=== PATIENT | female | born 1950 | race Caucasian/White ===

== ENCOUNTER → 2017-12-02 17:51 | Outpatient (CLI) | payer MEDICARE, OTHER, SELFPAY ==
--- NOTE | 2017-12-02 18:02 | DI.MRI.S_ITS ---
PROCEDURE: MR LUMBAR SPINE WO CON INDICATIONS: LUMBAR DDD TECHNIQUE: Noncontrast sagittal T1 spin echo and T2 fast echo, sagittal STIR, axial T1 and T2 fast spin echo through the lumbar spine. In cases with scoliosis, additional coronal T2 fast spin echo may be performed. COMPARISON: None. FINDINGS: Image quality: Excellent. Alignment and Curvature: There is normal bony alignment. Bone Marrow: Marrow is of normal overall signal. No acute vertebral body compression fractures. Spinal Cord: Conus medullaris terminates at the L1-L2 level. Visualized cord demonstrates normal signal and size. Paraspinous Soft Tissues: No paravertebral masses. L1-L2: Mild loss of disc height. Moderate disc desiccation. There is diffuse posterior disc bulge and disc osteophyte complex. Mild bilateral facet arthropathy. The central canal is patent. Moderate foraminal stenosis. L2-L3: Moderate to severe loss of disc height. Moderate disc desiccation. There is diffuse posterior disc bulge and disc osteophyte complex. Mild bilateral facet arthropathy. The central canal is patent. Moderate to severe right and mild left foraminal stenosis. L3-L4: Severe loss of disc height. Moderate disc desiccation. There is diffuse posterior disc bulge and disc osteophyte complex. Moderate bilateral facet arthropathy. The central canal is patent. Moderate right and mild left foraminal stenosis. L4-L5: Severe loss of disc height. Moderate disc desiccation. There is diffuse posterior disc bulge and disc osteophyte complex. Moderate bilateral facet arthropathy. The central canal is patent. Moderate bilateral foraminal stenosis. L5-S1: Severe loss of disc height. Moderate disc desiccation. There is diffuse posterior disc bulge and disc osteophyte complex. Moderate bilateral facet arthropathy. The central canal is patent. Moderate bilateral foraminal stenosis. IMPRESSION: 1. Multilevel degenerative disc disease and facet arthropathy as described. 2. No significant central canal stenosis. 3. Multilevel foraminal stenosis as described. Dictated by: Vito Benitez M.D. on 12/03/2017 at 8:54 Approved by: Vito Benitez M.D. on 12/03/2017 at 15:13
== END ==
PROVIDERS: Family Provider Internal Medicine; PCP Internal Medicine; Visit Provider Family Medicine Sports Medicine
DX: M51.36 Other intervertebral disc degeneration, lumbar region (principal); M51.37 Other intervertebral disc degeneration, lumbosacral region; M47.816 Spondylosis without myelopathy or radiculopathy, lumbar region; M47.817 Spondylosis without myelopathy or radiculopathy, lumbosacral region; M48.061 Spinal stenosis, lumbar region without neurogenic claudication; M48.07 Spinal stenosis, lumbosacral region
CPT/HCPCS: 72148

== ENCOUNTER → 2018-01-04 12:19 | Outpatient (CLI) | payer MEDICARE, OTHER, SELFPAY ==
--- NOTE | 2018-01-04 | DI.MG.S_ITS ---
BILATERAL DIGITAL SCREENING MAMMOGRAM 3D/2D WITH CAD: 01/04/2018 CLINICAL: Routine screening. Family history of breast cancer. Comparison is made to exams dated: 10/23/2016 mammogram, 10/17/2015 mammogram, and 09/04/2014 mammogram - [facility]. The tissue of both breasts is heterogeneously dense. This may lower the sensitivity of mammography. Current study was also evaluated with a Computer Aided Detection (CAD) system. No significant masses, calcifications, or other findings are seen in either breast. There has been no significant interval change. IMPRESSION: NEGATIVE There is no mammographic evidence of malignancy. A 1 year screening mammogram is recommended. NOTE: For mammograms, a report in lay terms will be sent to the patient. Approximately 15% of breast malignancies will not be visualized mammographically. In the management of a palpable breast mass, a negative mammogram must not discourage biopsy of a clinically suspicious lesion. Electronically Signed By: Niecy whiteside/jarad:01/05/2018 14:13:21 copy to: Priscilla Quinonez copy to: Ian Leo letter sent: Normal Exam ACR BI-RADS Category 1: Negative 3341F
== END ==
PROVIDERS: Family Provider Obstetrics & Gynecology; Visit Provider Family Medicine Sports Medicine
DX: Z12.31 Encounter for screening mammogram for malignant neoplasm of breast (principal); Z80.3 Family history of malignant neoplasm of breast; M85.852 Other specified disorders of bone density and structure, left thigh; Z78.0 Asymptomatic menopausal state; Z82.62 Family history of osteoporosis
CPT/HCPCS: 77063; 77067; 77080

== ENCOUNTER → 2019-02-17 13:55 | Outpatient (CLI) | payer MEDICARE, OTHER, SELFPAY ==
--- NOTE | 2019-02-17 | DI.MG.S_ITS ---
BILATERAL DIGITAL SCREENING MAMMOGRAM 3D/2D WITH CAD: 02/17/2019 CLINICAL: Routine screening. Family history of breast cancer. Comparison is made to exams dated: 01/04/2018 mammogram, 10/23/2016 mammogram, 10/17/2015 mammogram, 05/10/2012 mammogram, 07/27/2013 mammogram, and 09/04/2014 mammogram - [facility]. The tissue of both breasts is heterogeneously dense. This may lower the sensitivity of mammography. Current study was also evaluated with a Computer Aided Detection (CAD) system. No significant masses, calcifications, or other findings are seen in either breast. There has been no significant interval change. IMPRESSION: NEGATIVE There is no mammographic evidence of malignancy. A 1 year screening mammogram is recommended. This exam was interpreted at Station ID: [id number]. NOTE: For mammograms, a report in lay terms will be sent to the patient. Approximately 15% of breast malignancies will not be visualized mammographically. In the management of a palpable breast mass, a negative mammogram must not discourage biopsy of a clinically suspicious lesion. Electronically Signed By: Tray klein/jarad:02/17/2019 19:07:01 copy to: Prince Mckeon letter sent: Normal Exam ACR BI-RADS Category 1: Negative 3341F
== END ==
PROVIDERS: Family Provider Obstetrics & Gynecology; PCP Internal Medicine; Visit Provider Obstetrics & Gynecology
DX: Z12.31 Encounter for screening mammogram for malignant neoplasm of breast (principal); Z80.3 Family history of malignant neoplasm of breast
CPT/HCPCS: 77063; 77067

== ENCOUNTER → 2019-05-12 14:48 | Outpatient (CLI) | payer MEDICARE, OTHER, SELFPAY | PROVIDERS: Family Provider Obstetrics & Gynecology; PCP Internal Medicine; Referring Provider Internal Medicine; Visit Provider Internal Medicine | DX: M85.851 Other specified disorders of bone density and structure, right thigh (principal); Z78.0 Asymptomatic menopausal state; Z82.62 Family history of osteoporosis | CPT/HCPCS: 77080 ==

== ENCOUNTER → 2020-02-19 11:18 | Outpatient (CLI) | payer MEDICARE, OTHER, SELFPAY ==
--- NOTE | 2020-02-19 | DI.MG.S_ITS ---
BILATERAL DIGITAL SCREENING MAMMOGRAM 3D/2D WITH CAD: 02/19/2020 CLINICAL: Routine screening. Family history of breast cancer. Comparison is made to exams dated: 02/17/2019 mammogram, 01/04/2018 mammogram, and 10/23/2016 mammogram - [facility]. The tissue of both breasts is heterogeneously dense. This may lower the sensitivity of mammography. Current study was also evaluated with a Computer Aided Detection (CAD) system. No significant masses, calcifications, or other findings are seen in either breast. There has been no significant interval change. IMPRESSION: NEGATIVE There is no mammographic evidence of malignancy. A 1 year screening mammogram is recommended. This exam was interpreted at Station ID: [id number]. NOTE: For mammograms, a report in lay terms will be sent to the patient. Approximately 15% of breast malignancies will not be visualized mammographically. In the management of a palpable breast mass, a negative mammogram must not discourage biopsy of a clinically suspicious lesion. Electronically Signed By: Shukri Almodovar acr/penrad:02/19/2020 14:20:49 copy to: Prince Mckeon letter sent: Normal Exam ACR BI-RADS Category 1: Negative 3341F
== END ==
PROVIDERS: Family Provider Obstetrics & Gynecology; PCP Internal Medicine; Referring Provider Obstetrics & Gynecology; Visit Provider Obstetrics & Gynecology
DX: Z12.31 Encounter for screening mammogram for malignant neoplasm of breast (principal); Z80.3 Family history of malignant neoplasm of breast
CPT/HCPCS: 77063; 77067

== ENCOUNTER → 2020-05-02 14:40 | Outpatient (ROUT) | payer MEDICARE, OTHER, SELFPAY ==
[2020-05-02 15:18] LABS: Cholesterol 155 mg/dL (140-199); Glucose 95 mg/dL (80-110); HDL Cholesterol 85 mg/dL (40-60); LDL Cholesterol Calculated 58 mg/dL (<100); Triglycerides 58 mg/dL (35-150)
[2020-05-02 15:22] LABS: Hemoglobin A1C% w Est Avg Glu 4.7 % (4.0-6.0)
== END ==
PROVIDERS: Family Provider Obstetrics & Gynecology; PCP Internal Medicine; Visit Provider Internal Medicine
DX: E78.2 Mixed hyperlipidemia (principal); R73.01 Impaired fasting glucose
CPT/HCPCS: 80061; 82947; 83036

== ENCOUNTER → 2020-06-26 13:42 | Outpatient (CLI) | payer MEDICARE, SELFPAY ==
--- NOTE | 2020-06-26 | DI.RAD.S_ITS ---
PROCEDURE: XR DEXA AXIAL SKELETON INDICATIONS: Asymptomatic menopausal state COMPARISON: [facility], CR, XR DEXA AXIAL SKELETON, 05/12/2019, 15:05. FINDINGS: This blank DEXA report has been sent in error by the PACS system. The correct and complete report will be forthcoming in 1-2 days. Thank you for your patience and understanding. Dictated by: Meche Siddiqi MD, PhD on 06/26/2020 at 17:18 Approved by: Meche Siddiqi MD, PhD on 06/26/2020 at 17:18
== END ==
PROVIDERS: Family Provider Obstetrics & Gynecology; PCP Internal Medicine; Referring Provider Internal Medicine; Visit Provider Internal Medicine
DX: Z78.0 Asymptomatic menopausal state (principal); M85.852 Other specified disorders of bone density and structure, left thigh; Z82.62 Family history of osteoporosis
CPT/HCPCS: 77080

== ENCOUNTER → 2020-07-18 18:36 | Outpatient (ROUT) | payer MEDICARE, OTHER, SELFPAY ==
[2020-07-18 18:53] LABS: BUN Creatinine Ratio 34.4 (6-22); Blood Urea Nitrogen 22 mg/dL (7-17); Calcium 8.9 mg/dL (8.4-10.2); Carbon Dioxide 27 mmol/L (22-32); Chloride 102 mmol/L (98-107); Estimated Glomerular Filt Rate > 60.0 mL/min (>60); Glucose 106 mg/dL (80-110); HEMOLYSIS < 15 (0-50); Potassium 4.2 mmol/L (3.4-5.1); Sodium 135 mmol/L (137-145)
[2020-07-30 08:19] LABS: 1,25-Dihydroxy, Vitamin D-2 <10 pg/mL (.)
== END ==
PROVIDERS: Family Provider Obstetrics & Gynecology; PCP Internal Medicine; Visit Provider Internal Medicine
DX: M85.80 Other specified disorders of bone density and structure, unspecified site (principal); E55.9 Vitamin D deficiency, unspecified
CPT/HCPCS: 80048; 82652

== ENCOUNTER → 2021-04-18 15:29 | Outpatient (CLI) | payer MEDICARE, OTHER, SELFPAY ==
--- NOTE | 2021-04-18 | DI.MG.S_ITS ---
BILATERAL DIGITAL SCREENING MAMMOGRAM 3D/2D WITH CAD: 04/18/2021 CLINICAL: Routine screening. Family history of breast cancer. Comparison is made to exams dated: 02/19/2020 mammogram, 02/17/2019 mammogram, and 01/04/2018 mammogram - [facility]. The tissue of both breasts is heterogeneously dense. This may lower the sensitivity of mammography. Current study was also evaluated with a Computer Aided Detection (CAD) system. No significant masses, calcifications, or other findings are seen in either breast. There has been no significant interval change. IMPRESSION: NEGATIVE There is no mammographic evidence of malignancy. A 1 year screening mammogram is recommended. This exam was interpreted at Station ID: [id number]. NOTE: For mammograms, a report in lay terms will be sent to the patient. Approximately 15% of breast malignancies will not be visualized mammographically. In the management of a palpable breast mass, a negative mammogram must not discourage biopsy of a clinically suspicious lesion. Electronically Signed By: Jesse Oswald M.D., jr/jarad:04/18/2021 15:50:29 copy to: Prince Mckeon letter sent: Normal Exam ACR BI-RADS Category 1: Negative 3341F
--- NOTE | 2021-04-18 | DI.US.S_ITS ---
PROCEDURE: US PELVIC COMPLETE INDICATIONS: PELVIC PAIN TECHNIQUE: Real-time scanning was performed of the pelvic organs, with image documentation. Additional endovaginal scanning was necessary due to incomplete visualization of the adnexal and endometrial structures by transabdominal scanning. COMPARISON: None. FINDINGS: Uterus: Uterus is retroverted and normal in size at 6.3 x 4.4 x 2.8 cm. The myometrium is heterogeneous. The endometrium measures 4.5 mm combined thickness. Microcystic changes of the endometrial complex. There are multiple fibroids, largest measuring 2.3 x 2.8 x 1.9 cm which is intramural. Ovaries: Ovaries are not identified. Other: No pathologic free abdominal or pelvic fluid. IMPRESSION: 1. Normal thickness of the endometrial complex which has a multi cystic appearance. Recommend short-term follow-up pelvic ultrasound in 6 weeks to assess for interval change. 2. Multiple small uterine fibroids, largest measuring 2.8 cm. 3. Ovaries not identified. We strive to produce accurate, complete, and clear reports of imaging services. To assist us in improving patient care, this report was composed using standard report templates and voice recognition software. Therefore, it may contain abnormal punctuation, insertions and/or omissions. Occasional wrong-word or sound-alike substitutions may occur. Though we review the report and make efforts to correct it, we do recommend that the report be read carefully in proper context to recognize any text inaccuracies. Dictated by: Rashad WALKER Interpreted: Jaspal Marcum MD on 04/18/2021 at 16:43 Transcribed by: DONNA on 04/18/2021 at 16:45 Approved by: Jaspal Marcum M.D. on 04/18/2021 at 18:03
== END ==
PROVIDERS: Family Provider Obstetrics & Gynecology; PCP Family Medicine; Referring Provider Family Medicine; Visit Provider Internal Medicine
DX: Z12.31 Encounter for screening mammogram for malignant neoplasm of breast (principal); D25.9 Leiomyoma of uterus, unspecified; Z80.3 Family history of malignant neoplasm of breast; R10.2 Pelvic and perineal pain; Z80.41 Family history of malignant neoplasm of ovary
CPT/HCPCS: 76830; 76856; 77063; 77067

== ENCOUNTER → 2021-05-12 17:25 | Outpatient (CLI) | payer MEDICARE, SELFPAY ==
[2021-05-12 19:00] LABS: Cancer Antigen 125 < 5.5 U/mL (0-35)
== END ==
PROVIDERS: Family Provider Obstetrics & Gynecology; PCP Family Medicine; Referring Provider Obstetrics & Gynecology; Visit Provider Obstetrics & Gynecology
DX: R14.0 Abdominal distension (gaseous) (principal); R10.2 Pelvic and perineal pain
CPT/HCPCS: 36415; 86304

== ENCOUNTER 2021-10-17 23:00 | Emergency (ER) | payer MEDICARE, OTHER, SELFPAY ==
[2021-10-17 23:03] VITALS: BP 178/83; PULSE 92; RESP 19; TEMP 36.6; O2SAT 99; BMI 19.1
--- NOTE | 2021-10-17 23:08 | DI.RAD.S_ITS ---
PROCEDURE: XR WRIST RT MIN 3V INDICATIONS: right wrist injury TECHNIQUE: 30 views of the wrist were acquired. COMPARISON: None. FINDINGS: Bones: There is a mildly impacted fracture of the distal radius. Fracture lines extend to the radiocarpal and distal radioulnar joints. No dislocation. No displaced ulnar fractures. Soft tissues: No suspicious soft tissue calcifications. IMPRESSION: 1. Mildly impacted fracture of the distal radius with articular extension as described. Dictated by: Arie Hathaway M.D. on 10/17/2021 at 23:42 Approved by: Arie Hathaway M.D. on 10/17/2021 at 23:45
--- NOTE | 2021-10-18 05:15 | ED_ITS ---
HPI - Extremity Injury (Upper) General Chief Complaint: Extremity Injury, Upper Stated Complaint: Rt. wrist paindue to fall Time Seen by Provider: 10/17/21 23:21 Source: patient Mode of arrival: Ambulatory History of Present Illness HPI narrative: 71-year-old female nonsmoker with noncontributory medical history presents with a chief complaint of pain in her right wrist after a ground level fall. She was in her normal state of health and denies any prodromal symptoms such as dizziness, weakness or lightheadedness. She was out walking her dog in the dark when she lost her balance and fell on an outstretched right wrist. She has si gnificant pain with palpation or range of motion. She denies any numbness, tingling or weakness. She denies any elbow or shoulder pain. She did not strike her head and has no neck or back pain. Related Data Home Medications Medication Instructions Recorded Confirmed CA PANTOTHENATE/FOLIC ACID/VIT 1 tab PO QDAY ##0 03/03/11 05/12/21 (MULTIVITAMIN) CALCIUM CARBONATE (Calcium 1,500 mg PO QDAY ##0 03/03/11 05/12/21 Carbonate) ASCORBIC ACID (VITAMIN C) 500 mg PO Q DAY ##0 02/18/12 05/12/21 Fish Oil (#EPA/GLA) 1 sgl PO Q DAY ##0 02/18/12 05/12/21 zolpidem 5 mg tablet 5 - 10 mg PO HS PRN Sleep 07/13/17 05/12/21 cholecalciferol (vitamin D3) 25 2,000 unit PO DAILY 08/15/18 05/12/21 mcg (1,000 unit) capsule cyanocobalamin (vitamin B-12) 500 500 mcg PO DAILY 08/15/18 05/12/21 mcg tablet Previous Rx's Medication Instructions Recorded conj estrogen-medroxyprogesterone 1 tab PO DAILY #45 tabs 11/11/20 0.3 mg-1.5 mg tablet (Prempro) Allergies Allergy/AdvReac Type Severity Reaction Status Date / Time No Known Allergies Allergy Uncoded 10/17/21 23:08 Review of Systems Review of Systems Narrative: GENERAL: Denies chills, fatigue, malaise, fever, sweats. HEENT: Denies sinus pain, ear pain, sore throat, difficulty swallowing, dizziness. RESPIRATORY: Denies dyspnea, cough, wheezing, hemoptysis, sputum. CARDIOVASCULAR: Denies chest pain, palpitations, orthopnea, edema, GASTROINTESTINAL: Denies nausea, vomiting, abdominal pain, diarrhea, constipation, melena. : Denies dysuria, frequency, incontinence, hematuria, urinary retention. MUSCULOSKELETAL: See HPI SKIN: Denies rash, skin lesions, or other NEUROLOGIC: Denies weakness, headache, numbness, change in speech, confusion, seizures, incoordination. PSYCHIATRIC: No concerning psychosocial issues. 12 point review of systems is negative except for those stated above Patient History Surgical History History of third molar tooth extraction Status post laminectomy Status post myomectomy Status post tonsillectomy and adenoidectomy Family History Brother Diabetes mellitus Brother Age: 74 Hypertension Mother Hypertension CAD (coronary artery disease) Peripheral arterial disease Sister Age: 62 Thyroid cancer Sister Age: 73 History of breast cancer History of ovarian cancer Hypertension Celiac disease Social History household members: spouse Smoking Status: Never smoker Smoking Status: Never smoker alcohol intake frequency: 0-2 drinks per day Alcohol type: wine Substance Use Type: does not use Exam Narrative Exam Narrative: GEN: AOx3 and in mild distress EYES: Pupils are equal, round, and reactive to light and accommodation. Extraoccular muscles are intact bilaterally. There is no subconjunctival hemorrhage or exudate. CHEST: Lungs are clear to auscultation bilaterally and free of wheezes, rales, or rhonchi. Heart rate is regular rhythm, there are no murmurs, clicks, rubs, or gallops. There is no chest wall tenderness. ABD: Abdomen is soft and nontender. There is no guarding or rebound. Bowel sounds are normal in all 4 quadrants. There is no mass or organomegaly. EXT: Decreased range of motion at right wrist due to pain. There is swelling and obvious deformity. This is isolated, closed and neurovascularly intact. No elbow or shoulder pain SKIN: Warm, pink, and dry. No erythema or rash Initial Vital Signs Initial Vital Signs: Vital Signs Temperature 98 F 10/17/21 23:03 Pulse Rate 92 H 10/17/21 23:03 Respiratory Rate 19 10/17/21 23:03 Blood Pressure 178/83 H 10/17/21 23:03 Pulse Oximetry 99 10/17/21 23:03 Oxygen Delivery Method 10/17/21 23:03 Procedures Orthopedic Splinting/Casting Injury #1: Side: right Upper Extremity Injury Location: wrist Upper Extremity Immobilizer: sling/shoulder immobilizer and sugar tong splint Post splinting neuro exam: intact Post splinting vascular exam: intact Placed by: Nursing Course Orders Ordered: ED Orders 10/17/21 23:08 XR wrist RT min 3V Stat Discontinued Medications Hydrocodone Bitart/Acetaminophen (Hydrocodone/Acet 5/325 Prepack) 1 bottle MISC SEEINSTR ONE Stop: 10/17/21 23:22 Last Admin: 10/18/21 00:26 Dose: Not Given Documented By: ISMA Ondansetron HCl (Ondansetron 4 Mg/2 Ml Inj) 4 mg IV NOW ONE Stop: 10/17/21 23:22 Last Admin: 10/17/21 23:57 Dose: Not Given Documented By: ISMA Ondansetron HCl (Ondansetron 4 Mg Odt Prepack) 1 bottle MISC SEEINSTR ONE Stop: 10/17/21 23:22 Last Admin: 10/18/21 00:26 Dose: Not Given Documented By: ISMA Propofol (Propofol 200 Mg/20 Ml Vial) 110 mg 2 mg/kg (110 mg) IV NOW ONE Stop: 10/17/21 23:22 Last Admin: 10/17/21 23:58 Dose: Not Given Documented By: ISMA Consultations Consultation #1: Discussed with on-call orthopedist, we sure the opinion that attempt at reduction in the emergency department is unlikely to result in any significant improvement. She request patient be placed in splint, given appropriate pain control and encouraged to follow-up with her office Vital Signs Vital signs: Vital Signs - 8 hr 10/17/21 23:03 Temperature 98 F Pulse Rate 92 H Respiratory Rate 19 Blood Pressure 178/83 H Pulse Oximetry 99 Oxygen Delivery Method Room Air MDM - Extremity Injury (Upper) Imaging Data Extremity x-ray #1: Radiologist's Impression: Close Wrist X-Ray (Signed) Arie Hathaway - 10/17/21 Pelvis Ultrasound (Signed) Jaspal Marcum - 04/18/21 Mammogram Screening (Signed) Jesse Oswald - 04/18/21 Bone Densitometry (Signed) NeeruMeche pritchett - 06/26/20 Mammogram Screening (Signed) NishiShukri - 02/19/20 Bone Densitometry 05/12/19 Mammogram Screening (Signed) Tray Lopez - 02/17/19 Mammogram Screening (Signed) Niecy Slade - 01/04/18 Lumbar Spine MRI (Signed) EliJosephine - 12/02/17 Telemetry Strips 07/13/17 Launch?[address] [address] XRay Report Signed Patient: Celina Stein MR#: [id number] : 1950 Acct:[id number] Age/Sex: 71 / F Date of Service: 10/17/21 Loc: Accession Number: [id number] ?? Procedure: XR wrist RT min 3V Ordering Provider: Jesús De La Cruz D.O. PROCEDURE:? XR WRIST RT MIN 3V ? INDICATIONS: right wrist injury ? TECHNIQUE:? 30 views of the wrist were acquired.? ? COMPARISON:? None. ? FINDINGS:? ? Bones:? There is a mildly impacted fracture of the distal radius.? Fracture lines extend to the radiocarpal and distal radioulnar joints.? No dislocation.? No displaced ulnar fractures. ? Soft tissues:? No suspicious soft tissue calcifications.? ? IMPRESSION:? ? 1. Mildly impacted fracture of the distal radius with articular extension as described. ? ? Dictated by: Arie Hathaway M.D. on 10/17/2021 at 23:42 ? ? Approved by: Arie Hathaway M.D. on 10/17/2021 at 23:45 ? Discharge Plan Departure Patient Disposition: Home Clinical Impression: Distal radius fracture, right Instructions: DI for Distal Radius Fracture Activity Restrictions/Additional Instructions: *You have been diagnosed with [right distal radius fracture] *What to do: *Please continue to take your regular medications as directed. [ ] New medication prescriptions sent to your pharmacy: [ ] [ ] New medication written as a paper prescription [x] Tylenol and occasional Motrin for pain *Please follow up with Dr. Goff ] of [facility] in 2-3 days, call for an appointment. Let them know you were seen in the Emergency Department and that we ask that you be seen in follow up. We will electronically transmit a record of today's note if your PCP is in our system *Return to Emergency Department if you should have any new, worsening or concerning symptoms, such as [worsening pain, significant swelling, cold extremities, numbness, tingling, weakness or other bothersome symptoms Splint Care: Keep splint clean and dry. Elevated affected body part to decrease swelling. OK to use ice pack on the affected body part. Use for 15-20 minutes each time, for 5-6x per day. If you develop worsening pain, numbness, tingling, discoloration of the affected body part, loosen the splint by loosening the SHELBY wrap, and either see your doctor for an urgent re-assessment, or return to the Emergency Department. Return to the Emergency Department for any new or worsening symptoms. Prescriptions: No Action CA PANTOTHENATE/FOLIC ACID/VIT (MULTIVITAMIN) 1 tab PO QDAY Qty: 0 CALCIUM CARBONATE (Calcium Carbonate) 1,500 mg PO QDAY Qty: 0 Fish Oil (#EPA/GLA) 1 sgl PO Q DAY Qty: 0 ASCORBIC ACID (VITAMIN C) 500 mg PO Q DAY Qty: 0 Prempro 0.3-1.5 mg tablet 1 tab PO DAILY Qty: 45 3RF cyanocobalamin (vitamin B-12) 500 mcg tablet 500 mcg PO DAILY cholecalciferol (vitamin D3) 1,000 unit capsule 2,000 unit PO DAILY zolpidem 5 MG tablet 5 - 10 mg PO HS PRN (Reason: Sleep) Referrals: Haile Mccann MD [Primary Care Provider] - Jyoti Bobo MD [Physician] - Visit Report Forms: Patient Portal/API
== END 2021-10-18 00:28 | disposition home or self-care (01) ==
PROVIDERS: Emergency Provider Emergency Medicine; Family Provider Obstetrics & Gynecology; PCP Family Medicine
DX: S52.501A Unspecified fracture of the lower end of right radius, initial encounter for closed fracture (principal); W18.30XA Fall on same level, unspecified, initial encounter
CPT/HCPCS: 29125; 73110; 99283

== ENCOUNTER → 2022-02-09 12:51 | Outpatient (CLI) | payer MEDICARE, OTHER, SELFPAY ==
--- NOTE | 2022-02-09 | DI.CT.S_ITS ---
PROCEDURE: CT ABDOMEN PELVIS W CON INDICATIONS: Lower abdominal pain, unspecified TECHNIQUE: After the administration of oral and IV contrast, axial sections were acquired from the lung bases to the pubic symphysis. Coronal and sagittal reformats were performed. For radiation dose reduction, the following was used: automated exposure control, adjustment of mA and/or kV according to patient size. COMPARISON: None. FINDINGS: Image quality: Excellent. Lung bases: Clear lung bases. No pleural effusion or hiatal hernia. Heart: No significant findings. ABDOMEN: Liver: Two small hepatic cysts, hemangiomas, or biliary hamartomas. Gallbladder: Partially decompressed. No calcifications visible. Biliary ducts: Nondilated. Pancreas: Minimally prominent pancreatic duct. Normal glandular contour and attenuation. Spleen: Normal size. Adrenal Glands: No masses. Kidneys and Ureters: Symmetric enhancement. No nephrolithiasis or hydronephrosis. No hydroureter. 1.3 cm corticomedullary left lower pole cyst. Stomach and Bowel: The stomach is partially decompressed. Several loops of bowel demonstrate air-fluid levels. No suspicious wall thickening. Slightly increased quantity of solid stool present in the colon and rectum. Peritoneum: No abnormal intraperitoneal fluid. No free air. Ventral Wall: No hernia. Abdominal Nodes: No retroperitoneal or mesenteric adenopathy by size criteria. Vessels: Aorta and inferior vena cava are normal in size. PELVIS: Pelvic Organs: The uterus is retroverted and demonstrates a lobulated contour secondary to several fibroids. Ovarian tissue is not identified. Bladder: Urinary bladder wall is mildly, diffusely in uniformly thickened. No significant perivesicular inflammation. Pelvic Nodes: No enlarged lymph nodes. Miscellaneous: No inguinal hernias are seen. Bones: No suspicious bone lesions or compression fractures. Multilevel degenerative disc height loss. IMPRESSION: 1. Retroverted and lobulated fibroid uterus may exert mass effect on the rectum. 2. Mild urinary bladder wall thickening may indicate cystitis, infectious or inflammatory. 3. No other suspicious findings. Dictated by: Melina Panda M.D. on 02/09/2022 at 17:45 Approved by: Melina Panda M.D. on 02/09/2022 at 17:53
== END ==
PROVIDERS: Family Provider Obstetrics & Gynecology; PCP Family Medicine; Referring Provider Family Medicine; Visit Provider Family Medicine
DX: N85.4 Malposition of uterus (principal); R10.30 Lower abdominal pain, unspecified
CPT/HCPCS: 74177; Q9967

== ENCOUNTER → 2022-04-29 13:54 | Outpatient (CLI) | payer MEDICARE, OTHER, SELFPAY ==
--- NOTE | 2022-04-29 13:56 | DI.MG.S_ITS ---
BILATERAL DIGITAL SCREENING MAMMOGRAM 3D/2D WITH CAD: 04/29/2022 CLINICAL: Routine screening. Family history of breast cancer. Comparison is made to exams dated: 04/18/2021 mammogram, 02/19/2020 mammogram, and 02/17/2019 mammogram - [facility]. Both breasts are heterogeneously dense, which may obscure small masses (category c / 51-75% glandular tissue). Current study was also evaluated with a Computer Aided Detection (CAD) system. There is a possible asymmetry in the left breast posterior depth central to the nipple seen on the mediolateral oblique view only. There is architectural distortion associated with the asymmetry. No other significant masses, calcifications, or other findings are seen in either breast. IMPRESSION: INCOMPLETE: NEEDS ADDITIONAL IMAGING EVALUATION The possible asymmetry in the left breast is indeterminate. Additional views with possible ultrasound are recommended. This exam was interpreted at Station ID: [id number]. NOTE: For mammograms, a report in lay terms will be sent to the patient. Approximately 15% of breast malignancies will not be visualized mammographically. In the management of a palpable breast mass, a negative mammogram must not discourage biopsy of a clinically suspicious lesion. Electronically Signed By: Niecy whiteside/jarad:04/29/2022 14:48:47 copy to: Prince Mckeon letter sent: Additional Imaging Needed ACR BI-RADS Category 0: Incomplete 3340F
== END ==
PROVIDERS: Family Provider Obstetrics & Gynecology; PCP Family Medicine; Referring Provider Family Medicine; Visit Provider Family Medicine
DX: Z12.31 Encounter for screening mammogram for malignant neoplasm of breast (principal); Z80.3 Family history of malignant neoplasm of breast
CPT/HCPCS: 77063; 77067

== ENCOUNTER → 2022-05-27 13:40 | Outpatient (CLI) | payer MEDICARE, OTHER, SELFPAY ==
--- NOTE | 2022-05-27 | DI.MG.S_ITS ---
UNILATERAL LEFT DIGITAL DIAGNOSTIC MAMMOGRAM 3D/2D WITH ADDITIONAL VIEWS: 05/27/2022 CLINICAL: Additional evaluation requested from prior study. Comparison is made to exams dated: 04/29/2022 mammogram, 04/18/2021 mammogram, and 02/19/2020 mammogram - [facility]. The left breast is heterogeneously dense, which may obscure small masses (category c / 51-75% glandular tissue). There is a possible benign asymmetry in the left breast posterior depth central to the nipple seen on the mediolateral oblique view only. This is not seen in additional views. There is architectural distortion associated with the asymmetry. No other significant masses or calcifications are seen in the breast. IMPRESSION: BENIGN There is no mammographic evidence of malignancy. A 1 year screening mammogram is recommended. Based on the Tyrer Cuzick model (a risk assessment model) the patient's lifetime risk is 16.4% and her 10 year risk is 11.5%. According to the ACR, ACS, and NCCN guidelines, an annual breast MRI exam along with mammogram is recommended if the patient's lifetime risk is 20% or greater. This exam was interpreted at Station ID: [id number]. NOTE: For mammograms, a report in lay terms will be sent to the patient. Approximately 15% of breast malignancies will not be visualized mammographically. In the management of a palpable breast mass, a negative mammogram must not discourage biopsy of a clinically suspicious lesion. Electronically Signed By: Shukri shelton/jarad:05/27/2022 14:13:38 copy to: Prince Mckeon ACR BI-RADS Category 2: Benign Finding(s) 3342F
== END ==
PROVIDERS: Family Provider Obstetrics & Gynecology; PCP Family Medicine; Referring Provider Family Medicine; Visit Provider Family Medicine
DX: N64.89 Other specified disorders of breast (principal); R92.8 Other abnormal and inconclusive findings on diagnostic imaging of breast
CPT/HCPCS: 77065; G0279

== ENCOUNTER → 2022-06-02 14:50 | Outpatient (CLI) | payer MEDICARE, OTHER, SELFPAY ==
[2022-06-02 16:24] LABS: Cancer Antigen 125 < 5.5 U/mL (0-35)
== END ==
PROVIDERS: Family Provider Obstetrics & Gynecology; PCP Family Medicine; Referring Provider Obstetrics & Gynecology; Visit Provider Obstetrics & Gynecology
DX: R14.0 Abdominal distension (gaseous) (principal); R10.2 Pelvic and perineal pain; Z80.41 Family history of malignant neoplasm of ovary
CPT/HCPCS: 36415; 86304

== ENCOUNTER → 2023-05-05 15:59 | Outpatient (CLI) | payer MEDICARE, SELFPAY ==
--- NOTE | 2023-05-05 16:00 | DI.MG.S_ITS ---
BILATERAL DIGITAL SCREENING MAMMOGRAM 3D/2D WITH CAD: 05/05/2023 CLINICAL: Routine screening. Family history of breast cancer. Comparison is made to exams dated: 04/29/2022 mammogram, 04/18/2021 mammogram, and 02/19/2020 mammogram - [facility]. Both breasts are heterogeneously dense, which may obscure small masses (category c / 51-75% glandular tissue). Current study was also evaluated with a Computer Aided Detection (CAD) system. No significant masses, calcifications, or other findings are seen in either breast. There has been no significant interval change. IMPRESSION: NEGATIVE There is no mammographic evidence of malignancy. A 1 year screening mammogram is recommended. Based on the Tyrer Cuzick model (a risk assessment model) the patient's lifetime risk is 15.6% and her 10 year risk is 11.8%. According to the ACR, ACS, and NCCN guidelines, an annual breast MRI exam along with mammogram is recommended if the patient's lifetime risk is 20% or greater. This exam was interpreted at Station ID: [id number]. NOTE: For mammograms, a report in lay terms will be sent to the patient. Approximately 15% of breast malignancies will not be visualized mammographically. In the management of a palpable breast mass, a negative mammogram must not discourage biopsy of a clinically suspicious lesion. Electronically Signed By: Jayden rocha/jarad:05/06/2023 09:01:03 copy to: Prince Mckeon letter sent: Normal Exam ACR BI-RADS Category 1: Negative [id number]
== END ==
PROVIDERS: Family Provider Obstetrics & Gynecology; PCP Family Medicine; Referring Provider Family Medicine; Visit Provider Family Medicine
DX: Z12.31 Encounter for screening mammogram for malignant neoplasm of breast (principal); Z80.3 Family history of malignant neoplasm of breast; R92.333 Mammographic heterogeneous density, bilateral breasts
CPT/HCPCS: 77063; 77067

== ENCOUNTER → 2023-06-30 12:24 | Outpatient (CLI) | payer MEDICARE, SELFPAY ==
--- NOTE | 2023-06-30 12:25 | DI.RAD.S_ITS ---
PROCEDURE: XR DEXA AXIAL SKELETON INDICATIONS: Asymptomatic menopausal state COMPARISON: [facility], CR, XR DEXA AXIAL SKELETON, 06/26/2020, 14:12. FINDINGS: Lumbar Spine: Bone mineral density 0.947 g/cm2, T score -0.9. Left Hip: Bone mineral density 0.762 g/cm2, T score -1.5. Left Femoral Neck: Bone mineral density 0.695 g/cm2, T score -1.4. Right Hip: Bone mineral density 0.789 g/cm2, T score -1.3. Right Femoral Neck: Bone mineral density 0.733 g/cm2, T score -1.0. Fracture Risk Calculation (when applicable): 10-year fracture risk of a major osteoporotic fracture 8.6% and of a hip fracture 1.6%. (T score greater or equal to -1.0 to: NORMAL) (T score from -1.1 to -2.4: OSTEOPENIA) (T score less than or equal to -2.5: OSTEOPOROSIS) IMPRESSION: Osteopenia. Dictated by: Jaspal Marcum M.D. on 07/01/2023 at 11:26 Approved by: Jaspal Marcum M.D. on 07/01/2023 at 11:29
== END ==
LOC: RAD 12:25
PROVIDERS: Family Provider Obstetrics & Gynecology; PCP Family Medicine; Referring Provider Family Medicine; Visit Provider Family Medicine
DX: Z78.0 Asymptomatic menopausal state (principal); Z13.820 Encounter for screening for osteoporosis; M85.89 Other specified disorders of bone density and structure, multiple sites
CPT/HCPCS: 77080

== ENCOUNTER → 2024-06-12 16:23 | Outpatient (CLI) | payer MEDICARE, OTHER, SELFPAY ==
--- NOTE | 2024-06-12 16:25 | DI.MG.S_ITS ---
MM screening mammo BI: 06/12/2024. BI-RADS: 0 CLINICAL: 74-year old female for bilateral screening mammogram. Tyrer-Cuzick lifetime risk of 9.5%. Current reported family history of breast cancer: paternal grandmother and sister. History of ovarian cancer in one first-degree relative. PRIOR EXAMS 05/05/2023, 05/27/2022, 04/29/2022, 04/18/2021, 02/19/2020, 02/17/2019, 01/04/2018, 10/23/2016, 10/17/2015, 09/04/2014. MAMMOGRAPHY TECHNIQUE: 2D and 3D (tomosynthesis) digital mammographic views obtained, with additional images as needed for full coverage. Current study was also evaluated with a Computer Aided Detection (CAD) system. DENSITY C. The breasts are heterogeneously dense, which may obscure small masses. MAMMOGRAPHY FINDINGS Right: No suspicious mass, asymmetry, microcalcification, or other abnormality seen. Left: Upper Inner Quadrant, Middle depth: Mass needing additional imaging evaluation. IMPRESSION: Right * No evidence of malignancy. Left (Mass): Upper Inner Quadrant, Middle depth * Incomplete - mass needing additional imaging evaluation. RECOMMENDATIONS Left: Upper Inner Quadrant, Middle depth * Further evaluation with diagnostic mammography and diagnostic ultrasound. OVERALL ASSESSMENT CATEGORY BI-RADS-0: Incomplete - Need Additional Imaging Evaluation. ELECTRONICALLY SIGNED: Ketty Sky M.D. on 06/13/2024 at 01:05:47 PM PT Interpreting Station ID: [id number]
== END ==
PROVIDERS: Family Provider Obstetrics & Gynecology; PCP Family Medicine; Referring Provider Family Medicine; Visit Provider Family Medicine
DX: Z12.31 Encounter for screening mammogram for malignant neoplasm of breast (principal); Z80.3 Family history of malignant neoplasm of breast; Z80.41 Family history of malignant neoplasm of ovary; R92.333 Mammographic heterogeneous density, bilateral breasts
CPT/HCPCS: 77063; 77067

== ENCOUNTER → 2024-07-05 11:57 | Outpatient (CLI) | payer MEDICARE, OTHER, SELFPAY ==
--- NOTE | 2024-07-05 11:58 | DI.US.S_ITS ---
PROCEDURE: US BREAST LT LIMITED COMPARISON: None. INDICATIONS: ADD VIEWS LT,MASS FINDINGS: IMPRESSION: Dictated by: Mary Burk M.D.,Ph.D. on 07/05/2024 at 13:31 Approved by: Mary Burk M.D.,Ph.D. on 07/05/2024 at 14:03
--- NOTE | 2024-07-05 11:58 | DI.MG.S_ITS ---
MM diagnostic mammo unilat LT, US breast LT limited: 07/05/2024 BI-RADS: 5 CLINICAL: 74-year old female for left diagnostic mammogram and left diagnostic breast ultrasound that is a recall from screening on 06/12/2024. Tyrer-Cuzick lifetime risk of 9.5%. Current reported family history of breast cancer: paternal grandmother and sister. History of ovarian cancer in one first-degree relative. PRIOR EXAMS Mammogram(s): 06/12/2024. Ten Other Exams on 05/05/2023, 05/27/2022, 04/29/2022, 04/18/2021, 02/19/2020, 02/17/2019, 01/04/2018, 10/23/2016, 10/17/2015, 09/04/2014. MAMMOGRAPHY TECHNIQUE: 2D and 3D (tomosynthesis) digital mammographic views obtained, with additional images as needed for full coverage. Current study was also evaluated with a Computer Aided Detection (CAD) system. ULTRASOUND TECHNIQUE Left targeted breast ultrasound of the area of clinical interest and the axilla was performed with image documentation. DENSITY Left: C. The breasts are heterogeneously dense, which may obscure small masses. MAMMOGRAPHY FINDINGS Left (finding-1): Inner at 10:30, Middle depth, measuring 1.5 cm. Previous report: Upper Inner Quadrant: There is a spiculated, irregular mass present. ULTRASOUND FINDINGS Left (finding-1): Upper Inner at 10:30, 3.5 cm from nipple, measuring 0.8 x 0.7 x 1.5 cm: Correlating with findings on mammogram there is an irregularly shaped, spiculated, hypoechoic mass. No associated axillary adenopathy present. IMPRESSION: Left (Mass): Upper Inner at 10:30, 3.5 cm from nipple, measuring 0.8 x 0.7 x 1.5 cm * Highly Suggestive of Malignancy. RECOMMENDATIONS Left: Upper Inner at 10:30, 3.5 cm from nipple * Ultrasound-guided biopsy for further evaluation. COMMENTS: Findings and recommendations were discussed with the patient by Dr. Li during today's evaluation. OVERALL ASSESSMENT CATEGORY BI-RADS-5: Highly Suggestive of Malignancy. ELECTRONICALLY SIGNED: Mary Burk M.D. on 07/05/2024 at 02:06:45 PM PT Interpreting Station ID: [id number]
--- NOTE | 2024-07-05 13:08 | DI.US.S_ITS ---
Patient Name: ADAM CORTEZ date: 1950 Sex: F Attending Physician: Ramy Indications: Date: 07/05/2024 14:06 At the request of: ZAYNAB BECKFORD Procedure: US breast LT limited MM diagnostic mammo unilat LT, US breast LT limited: 07/05/2024 BI-RADS: 5 CLINICAL: 74-year old female for left diagnostic mammogram and left diagnostic breast ultrasound that is a recall from screening on 06/12/2024. Tyrer-Cuzick lifetime risk of 9.5%. Current reported family history of breast cancer: paternal grandmother and sister. History of ovarian cancer in one first-degree relative. PRIOR EXAMS Mammogram(s): 06/12/2024. Ten Other Exams on 05/05/2023, 05/27/2022, 04/29/2022, 04/18/2021, 02/19/2020, 02/17/2019, 01/04/2018, 10/23/2016, 10/17/2015, 09/04/2014. MAMMOGRAPHY TECHNIQUE: 2D and 3D (tomosynthesis) digital mammographic views obtained, with additional images as needed for full coverage. Current study was also evaluated with a Computer Aided Detection (CAD) system. ULTRASOUND TECHNIQUE Left targeted breast ultrasound of the area of clinical interest and the axilla was performed with image documentation. DENSITY Left: C. The breasts are heterogeneously dense, which may obscure small masses. MAMMOGRAPHY FINDINGS Left (finding-1): Inner at 10:30, Middle depth, measuring 1.5 cm. Previous report: Upper Inner Quadrant: There is a spiculated, irregular mass present. ULTRASOUND FINDINGS Continued Report - Page 2 of 2 Patient Name: ADAM CORTEZ date: 1950 Sex: F Attending Physician: Ramy Indications: Date: 07/05/2024 14:06 At the request of: ZAYNAB BECKFORD Procedure: US breast LT limited Left (finding-1): Upper Inner at 10:30, 3.5 cm from nipple, measuring 0.8 x 0.7 x 1.5 cm: Correlating with findings on mammogram there is an irregularly shaped, spiculated, hypoechoic mass. No associated axillary adenopathy present. IMPRESSION: Left (Mass): Upper Inner at 10:30, 3.5 cm from nipple, measuring 0.8 x 0.7 x 1.5 cm * Highly Suggestive of Malignancy. RECOMMENDATIONS Left: Upper Inner at 10:30, 3.5 cm from nipple * Ultrasound-guided biopsy for further evaluation. COMMENTS: Findings and recommendations were discussed with the patient by Dr. Li during today's evaluation. OVERALL ASSESSMENT CATEGORY BI-RADS-5: Highly Suggestive of Malignancy. ELECTRONICALLY SIGNED: Mary Burk M.D. on 07/05/2024 at 02:06:45 PM PT Interpreting Station ID: [id number]
== END ==
LOC: MAMMO 11:57
PROVIDERS: Family Provider Obstetrics & Gynecology; PCP Family Medicine; Referring Provider Family Medicine; Visit Provider Family Medicine
DX: R92.8 Other abnormal and inconclusive findings on diagnostic imaging of breast (principal); N63.22 Unspecified lump in the left breast, upper inner quadrant; R92.332 Mammographic heterogeneous density, left breast; Z80.3 Family history of malignant neoplasm of breast; Z80.41 Family history of malignant neoplasm of ovary
CPT/HCPCS: 76642; 77065; G0279

== ENCOUNTER → 2024-07-21 10:13 | Outpatient (CLI) | payer MEDICARE, OTHER, SELFPAY ==
--- NOTE | 2024-07-21 10:14 | DI.US.S_ITS ---
Left US bx breast perc w vac device: 07/21/2024. Rad-Path Correlation: Pending CLINICAL: 74-year old female for left procedure that resulted from diagnostic mammogram on 07/05/2024. Tyrer-Cuzick lifetime risk of 9.5%. Current reported family history of breast cancer: paternal grandmother and sister. History of ovarian cancer in one first-degree relative. CONSENT Risks including but not limited to bleeding and infection, benefits and alternatives were discussed with the patient. The patients agreed to the procedure, reported no allergy to local anesthesia and signed the consent form. Risks including but not limited to bleeding and infection, benefits and alternatives were discussed with the patient. The patient agreed to the procedure and signed informed consent. Time out procedure was used. ROUTINE Left: Patient positioned in an upright position, prepped and draped in the usual manner using sterile technique. TECHNIQUE Left Breast: Upper Inner Quadrant, 3.5 cm from nipple: Procedure: Ultrasound-guided vacuum-assisted biopsy of a mass with Barrel-shaped marker placement. Device: Vacuum-assisted biopsy instrument. Approach: Lateral. Anesthesia: Local anesthesia obtained using 5 ml 1%-lidocaine with epinephrine buffered with sodium bicarbonate. Secondary local anesthesia obtained using 5 ml 1%-lidocaine buffered with sodium bicarbonate. Skin Entry: Incision with #11 blade. Passes: 4. Specimens: 4. Targeting Confirmation: Post-Procedure Imaging. Marker Placement: district sales representative placed in target location. Post-procedure imaging: Post-procedure mammogram confirms the marker to be in target location. Rad/Path Correlation: Pending receipt of pathology report. Conclusion: Ultrasound-guided Vacuum-assisted biopsy with post-procedure mammogram with marker placement, Left Breast: Upper Inner Quadrant, 3.5 cm from nipple COMPLICATIONS: No complications were encountered while the patient was in our department. DISPOSITION The patient left our department in good condition with aftercare instructions and urged to contact us should any problem arise. SUMMARY Left Breast: Upper Inner Quadrant, 3.5 cm from nipple: Ultrasound-guided vacuum-assisted biopsy of a mass with Barrel-shaped marker placement. PATHOLOGY Left Breast: Upper Inner Quadrant, 3.5 cm from nipple: Radiologist-Pathologist Correlation: Pending receipt of pathology report. ELECTRONICALLY SIGNED: Tonie Samuel M.D. on 07/25/2024 at 05:38:30 PM PT Interpreting Station ID: [id number]
--- NOTE | 2024-07-21 10:15 | DI.MG.S_ITS ---
MM diagnostic mammo [id number]: 07/21/2024. BI-RADS: None CLINICAL: 74-year old female for left diagnostic mammogram that is a recall from screening on 06/12/2024. Tyrer-Cuzick lifetime risk of 9.5%. Current reported family history of breast cancer: paternal grandmother and sister. History of ovarian cancer in one first-degree relative. PRIOR EXAMS Mammogram(s): 07/05/2024, 06/12/2024. Breast Ultrasound(s): 07/05/2024. Ten Other Exams on 05/05/2023, 05/27/2022, 04/29/2022, 04/18/2021, 02/19/2020, 02/17/2019, 01/04/2018, 10/23/2016, 10/17/2015, 09/04/2014. MAMMOGRAPHY TECHNIQUE: 2D and 3D (tomosynthesis) digital mammographic views obtained, with additional images as needed for full coverage. Current study was also evaluated with a Computer Aided Detection (CAD) system. DENSITY: The breasts are less dense than previously. Left: C. The breasts are heterogeneously dense, which may obscure small masses. MAMMOGRAPHY FINDINGS Left: Upper Inner at 10:30, 3.5 cm from nipple: There is a (Barrel) biopsy marker in targeted location. IMPRESSION: Left * Biopsy marker present. OVERALL ASSESSMENT CATEGORY BI-RADS None: This exam requires no BI-RADS. ELECTRONICALLY SIGNED: Tonie Samuel M.D. on 07/25/2024 at 05:40:19 PM PT Interpreting Station ID: [id number]
--- NOTE | 2024-07-21 11:15 | PATH_ITS ---
[facility] Accession Number: [id number] No. of containers..01 Tissue . 01 Material submitted: . breast - LT BREAST . 01 Clinical history: . 4 SAMPLES . 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 Combined total Mary histololgic score: 4 out of 9 (tubule formation 1/3, nuclear pleomorphism 2/3, mitotic index 1/3). Overall grade: Grade 1 (low grade). In situ carcinoma: Present, ductal type, cribriform architecture, low nuclear grade, with focal necrosis. Lymphovascular invasion: Not identified. Greatest linear extent of invasive carcinoma: 0.7 cm, as measured microscopically from the glass slide. Microcalcifications: Rare microcalcifications present in benign breast tissue. Predictive markers: Estrogen and Progesterone receptors positive, HER2 negative for expression by immunohistochemistry, and low proliferation by Ki67, please see microscopic description for details. [facility] 07/25/2024 1739 Local . 01 Comment: Results are called to NICKI Kelsey, on 07/25/2024 at 3:50 p.m. . 01 Electronically signed: . Juan Mcconnell MD, Pathologist NPI- [id number] . 01 Gross description: . Received in formalin with two identifiers and LT breast 10:30, 3.5 cm FN, are multiple tipton soft tissue fragments admixed with hemorrhagic material aggregating to 1.7 x 1.3 x 0.3 cm. Inked green, filtered and submitted entirely in A1. . The specimen was removed on 07/21/2024, time not provided. Cold ischemic time cannot be calculated. Total fixation time is approximately 56 hours. ([id number]) /MRV 07/22/2024 1739 Local . 01 Microscopic: . Myosin and p63 immunostains confirm the absence of staining on the myoepithelial and basal cell layer of the infiltrating tumor nests, with internal control working well. These results support invasive carcinoma. . GATA3 is positive on the infiltrating tumor cells, supporting breast origin, and E-cadherin is strong, uniform positive on the infiltrating tumor cells, supporting ductal differentiation. . Predictive marker immunohistochemical studies are performed on block A1 with invasive carcinoma showing the following characteristics: . Estrogen Receptor (SP1): Positive (strong intensity, 91-100%). Progesterone Receptor (1E2): Positive (81-90%, strong intensity). HER2 (4B5): Negative for overexpression (1+). Proliferation marker Ki67: Low, approximately 5%. . As part of ongoing quality rep, this case is also reviewed by Dr. Vanita Ott, who agrees with the interpretation. . Internal controls for ER and MD are positive. Cold ischemic time is <1 minute. The scoring criteria for breast biomarkers by immunohistochemistry is based on the ASCO/CAP guidelines (Anson AC et al, J Clin Oncol: 2017Sep 21;36(20):8790-6992 and Horn ME et al, Arch Pathol Lab Med: 2009;134(6):907-22). Deparaffinized sections of formalin fixed tissue (along with appropriate positive controls) are incubated with the above antibody(s). Using the automated Chambers stainer, tissue is incubated with the designated antibody which is then localized by a non-biotin, dual polymer detection system. The external controls are reviewed for appropriate reactivity and found to be adequate. Results on the target cell population are indicated above. These tests have not been validated on decalcified tissue. . This test was developed and the performance characteristics were validated by [facility]. It has not been cleared or approved by the U.S. Food and Drug Administration. . 01 Pathologist provided ICD-10: C50.912 . 01 CPT . 008107, X43002, V82541, 148719, 078867, [id number], [id number] Specimen Comment: A courtesy copy of this report has been sent to [phone], [phone] Specimen Comment: [id number] Performed at: [address] [facility] [address], [place], [place] [id number] MD Arie Porter MD Phone: [phone]
== END ==
PROVIDERS: Family Provider Obstetrics & Gynecology; PCP Family Medicine; Referring Provider Family Medicine; Visit Provider Family Medicine
DX: R92.8 Other abnormal and inconclusive findings on diagnostic imaging of breast (principal); C50.212 Malignant neoplasm of upper-inner quadrant of left female breast; R92.332 Mammographic heterogeneous density, left breast; Z80.3 Family history of malignant neoplasm of breast; Z80.41 Family history of malignant neoplasm of ovary; Z17.0 Estrogen receptor positive status [ER+]; Z17.21 Progesterone receptor positive status
CPT/HCPCS: 19083; 77065